=== PATIENT | female | born 1990 | race Caucasian/White ===

== ENCOUNTER → 2019-06-26 11:11 | Outpatient (BNVA) | payer OTHER, SELFPAY | PROVIDERS: Family Provider Family Medicine; PCP Nurse Practitioner Family; Visit Provider Nurse Practitioner | DX: M25.511 Pain in right shoulder (principal) | CPT/HCPCS: 73030 ==

== ENCOUNTER → 2020-07-22 07:55 | Outpatient (BNVA) | payer OTHER, SELFPAY | PROVIDERS: Family Provider Family Medicine; PCP Nurse Practitioner Family; Visit Provider Nurse Practitioner Family | DX: L73.9 Follicular disorder, unspecified (principal) | CPT/HCPCS: 87070; 87077; 87184 ==

== ENCOUNTER → 2021-02-08 16:07 | Outpatient (BNVA) | payer OTHER, SELFPAY | PROVIDERS: Family Provider Family Medicine; PCP Nurse Practitioner Family; Visit Provider Obstetrics & Gynecology | DX: N92.6 Irregular menstruation, unspecified (principal) | CPT/HCPCS: 88305 ==

== ENCOUNTER → 2021-02-23 13:10 | Outpatient (BNVA) | payer OTHER, SELFPAY | PROVIDERS: Family Provider Family Medicine; PCP Nurse Practitioner Family; Visit Provider Obstetrics & Gynecology | DX: N93.9 Abnormal uterine and vaginal bleeding, unspecified (principal); E66.9 Obesity, unspecified | CPT/HCPCS: 76830 ==

== ENCOUNTER → 2021-03-25 08:59 | Outpatient (BNVA) | payer OTHER, SELFPAY | PROVIDERS: Family Provider Family Medicine; PCP Nurse Practitioner Family; Visit Provider Obstetrics & Gynecology | DX: Z20.822 Contact with and (suspected) exposure to COVID-19 (principal); D21.9 Benign neoplasm of connective and other soft tissue, unspecified; N93.9 Abnormal uterine and vaginal bleeding, unspecified; R10.2 Pelvic and perineal pain; R32 Unspecified urinary incontinence | CPT/HCPCS: 87635 ==

== ENCOUNTER 2021-03-30 18:36 | Observation (INO) | payer OTHER, SELFPAY ==
[2021-03-29 14:13] VITALS: BMI 42.5
[2021-03-30] VITALS (18 sets, daily range): BP systolic 108–151; BP diastolic 78–104; PULSE 79–898; RESP 12–22; TEMP 36.1–36.4; O2SAT 94–100; BMI 44.1
--- NOTE | 2021-03-30 08:30 | ANES.PREANE2 ---
Pre-Anesthetic Assessment Pre-Anesthetic Assessment: Height/Weight: Height 1.6 m Weight 108.862 kg Temp Pulse Resp BP Pulse Ox 97.5 F L 79 16 151/104 100 03/30/21 08:25 03/30/21 08:25 03/30/21 08:25 03/30/21 08:25 03/30/21 08:25 Preop Diagnosis: Adenomyosis, leiomyoma, AUB Proposed Procedure: Operation Date: 03/30/21 09:35 Proposed Procedures p Laparoscopic Assist Vaginal Hysterectomy 14022 02284 D21.9 N93.9 R32(Not Applicable) - Susan Chavez MD s Laparoscopic Salpingectomy(Bilateral) - Susan Chavez MD s Mid Urethral Sling(Not Applicable) - Susan Chavez MD Familial anesthetic complications: none Was Beta Javier taken within 24 hours: N/A Was Clonidine taken within 24 hours: N/A Last intake: Intake Last Liquid Date 03/29/21 Last Liquid Time 21:00 Last Solid Date 03/29/21 Last Solid Time 21:00 Social: Social History: No alcohol and No tobacco Exam: Pre-Anes Outpt Exam: alert, oriented x 3, clear to auscultation bilaterally and regular rate & rhythm Airway: Cervical ROM: WNL MP: 1 Dentition: Other (implants) Metabolic: Metabolic: Morbid obesity Comments: PCOS Anesthetic Plan: ASA status: 3 Anesthesia: General Risk of > 500 ml blood loss (7ml/kg in children): No PFSH Anesthesia PFSH: Medical History History of PCOS History of pre-eclampsia Traumatic partial tear of biceps tendon Surgical History History of bladder repair surgery sling, 10/2020 Social History Smoking and tobacco status: never smoked Alcohol intake: current Alcohol intake frequency: holidays/special occasions only Female Reproductive History: Date of last menstrual period: 03/21/21 Data Anesthesia Cardiac Studies: No Data to Display
[2021-03-30] MEDS: sodium chloride 0.9% 1,000 ML 30 ML IV (08:40)
[2021-03-30 08:46] LABS: Glucose Point of Care 88 mg/dL (70-110)
--- NOTE | 2021-03-30 12:47 | W.PM.OPSUD ---
Surgery/Procedure H&P Update DATE OF PROCEDURE: March 30, 2021 DATE H&P PERFORMED: 03/25/21 H&P UPDATE INFORMATION: I have reviewed H&P completed within last 30 days, I have examined patient prior to procedure and No changes to prior documentation PREOP DIAGNOSIS: Adenomyosis, leiomyoma, AUB PLANNED PROCEDURE: Operation Date: 03/30/21 09:35 Proposed Procedures p Laparoscopic Assist Vaginal Hysterectomy 72421 36657 D21.9 N93.9 R32(Not Applicable) - Susan Chavez MD s Laparoscopic Salpingectomy(Bilateral) - Susan Chavez MD s Mid Urethral Sling(Not Applicable) - Susan Chavez MD
[2021-03-30 13:27] LABS: OR HCG Qualitative Urine Negative (Negative)
[2021-03-30 13:57] LABS: Basophils % 0.3 %; Eosinophils # 0.1 10^3/uL (0.0-0.8); Eosinophils % 1.2 %; Hematocrit 42.9 % (37.0-47.0); Lymphocytes # 1.8 10^3/uL (0.8-4.8); Lymphocytes % 18.3 %; Mean Corpuscular Hemoglobin 30.6 pg (28.0-34.0); Mean Corpuscular Volume 87.6 fl (81-99); Mean Platelet Volume 10.5 fL (7.4-10.4); Monocytes # 0.5 10^3/uL (0.2-0.9); Monocytes % 4.9 %; Neutrophils # 7.51 10^3/uL (1.8-7.7); Nucleated Red Blood Cells % 0 %; Platelet Count 320 10^3/cmm (130-400); Red Cell Distribution Width 11.8 % (12.1-15.1)
[2021-03-30] MEDS: vasopressin 20 unit/mL INJ (14:33)
[2021-03-30] MEDS: acetaminophen 1,000 MG/100 ML PIGGYBACK 400 MG IV (15:05)
[2021-03-30 15:18] LABS: Anion Gap 17.4 (5-19); Blood Urea Nitrogen 9 mg/dL (6-20); Calcium 8.6 mg/dL (8.5-10.5); Carbon Dioxide 22 mmol/L (22-29); Chloride 102 mmol/L (98-107); Glomerular Filtration Rate 143.9 mL/min (90-130); Glucose 79 mg/dL (65-115); Osmolality Calculated 282 mOsm/kg (285-295); Potassium 4.4 mmol/L (3.5-5.1); Sodium 137 mmol/L (136-145)
[2021-03-30] MEDS: ketorolac 30 mg/mL INJ IVP ×2 (15:18→20:30)
--- NOTE | 2021-03-30 16:18 | PC.NURSE ---
1618 spoke with patient's mother and gave her an update.
--- NOTE | 2021-03-30 17:22 | PM.OP ---
Operative Report Date of procedure: March 30, 2021 Pre-op Diagnosis: Adenomyosis, leiomyoma, AUB Post-op diagnosis: same Post-op Findings: same with endometiosis Procedure Done: laparoscopic assisted vaginal hysterectomy, bilateral salpingectomy Specimens removed/disposition: uterus, bilateral fallopian tubes to pathology Surgeon: Susan Chavez Anesthesia: General Estimated blood loss (mL): 400 IV fluids (mL): 1,600 Urine output (mL): 250 Complications: none Condition: stable Disposition: floor Procedure: The patient was taken to the operating room where general anesthesia was administered and found to be adequate. She was prepped and draped in the normal sterile fashion in the dorsal lithotomy position in [facility]. A Christensen catheter was placed. A weighted speculum was placed into the vagina and the anterior lip of the cervix was grasped with a single tooth tenaculum. The Zumi uterine manipulator was placed. The weighted speculum was removed. The gloves were changed and attention was turned to the abdomen. A 5 mm infraumbilical incision was made. Using a 5 mm port with the camera, the port was placed into the abdomen. The abdomen was insufflated. Two low, lateral 5 mm ports were placed on the left and right under direct visualization from the camera. The right tube was grasped and elevated. Using the laparoscopic cautery, the mesosalpinx was divided between the ovary and tube. The tube was removed. This was performed the same way on the left. The uteroovarian ligaments as well as the round ligaments were ligated. Attention was then turned to the vaginal portion of the procedure. The weighted speculum was placed into the vagina. The zumi manipulator was removed. The single tooth tenaculum was removed and replaced with the renu's tenaculum. 10 mL of dilute Pitressin was injected at the vesicovaginal junction. A circumferential incision was made at the vesicovaginal junction and the vaginal mucosa reflected cephalad. The posterior peritoneum was entered sharply with the Metzenbaum scissors and the long weighted speculum replaced. Using the Luciano clamps the uterosacral ligaments were clamped cut and suture-ligated. The anterior peritoneum was entered sharply with the metzenbaum scissors. Then sequentially the uterine arteries and cardinal ligaments were clamped cut and suture-ligated. A single-tooth tenaculum was used to deliver the uterus. The remaining segement of the utero-ovarian ligaments were clamped cut and suture-ligated bilaterally and the specimen was removed. There was good hemostasis with only mild bleeding from the cuff. The peritoneum was closed with a pursestring using 2-0 Vicryl. The vaginal cuff was closed with 0 Vicryl in a running locked pattern incorporating the uterosacral ligaments into the lateral aspects of the vaginal cuff. The Christensen catheter was removed and the cystoscope advanced into the bladder. The patient was given pyridium and bilateral spill was noted. There were no injuries or deficits noted in the bladder. The cystoscope was removed and the Christensen was replaced. Vaginal packing was placed for good hemostasis. The patient tolerated the procedure well. Sponge lap and needle counts were correct x3. She was taken to the recovery room in stable condition. Associated Problem List Diagnoses (1) Adenomyosis: (2) Leiomyoma: (3) Abnormal uterine bleeding (AUB):
[2021-03-30] MEDS: fentaNYL 50 mcg/mL INJ 2mL IVP ×2 (17:25→17:35)
[2021-03-30] MEDS: gabapentin 300 mg Capsule PO (18:04)
[2021-03-30] MEDS: morphine 4 mg/mL SDV 1 mL 2 MG IVP ×2 (18:07→18:12)
[2021-03-30] MEDS: HYDROmorphone 1 mg/mL INJ 1 mL 0.5 MG IVP ×2 (18:17→18:27)
[2021-03-30] MEDS: CELEcoxib 200 mg Capsule 400 MG PO (18:26)
[2021-03-30] MEDS: phenazopyridine 100 mg Tablet 200 MG PO (19:10)
[2021-03-30] MEDS: metformin 500 mg Tablet PO (20:29)
[2021-03-30] MEDS: lactated ringers 1,000 ML 125 ML IV (20:29)
[2021-03-30] MEDS: docusate sodium 100 mg Capsule PO (20:29)
[2021-03-30] MEDS: HYDROcodone-acetaminophen 5-325 mg Tablet PO (22:17)
--- NOTE | 2021-03-30 23:31 | CTR_ITS ---
PROCEDURE INFORMATION: Exam: CT Abdomen And Pelvis With Contrast Exam date and time: 03/30/2021 11:31 PM Age: 30 years old Clinical indication: Prior surgery; Surgery date: Post-operative (0-2 days); Surgery type: Hysterectomy on 03/30/2021. History of bladder sling. ; Patient HX: Persistent post op bleeding and blood in ocasio catheter S/P hysterectomy on 03/30/2021. ; Additional info: Blood in ocasio post op TECHNIQUE: Imaging protocol: Computed tomography of the abdomen and pelvis with contrast. Radiation optimization: All CT scans at this facility use at least one of these dose optimization techniques: automated exposure control; mA and/or kV adjustment per patient size (includes targeted exams where dose is matched to clinical indication); or iterative reconstruction. Contrast material: OMNI 350; Contrast volume: 95 ml; Contrast route: INTRAVENOUS (IV); COMPARISON: ES surgery / GI images 03/30/2021 1:02 PM RADIATION DOSE METRICS: Total DLP (mGy-cm): 2095.78 FINDINGS: Liver: Hepatic steatosis. Gallbladder and bile ducts: Normal. No calcified stones. No ductal dilation. Pancreas: Normal. No ductal dilation. Spleen: Normal. No splenomegaly. Adrenal glands: Normal. No mass. Kidneys and ureters: Left kidney interpolar region possible nonobstructive renal calyceal stone seen on the coronal images. Stomach and bowel: Unremarkable. No obstruction. No mucosal thickening. Appendix: No evidence of appendicitis. Intraperitoneal space: Free air seen throughout the abdomen is likely postsurgical in nature. Vasculature: Unremarkable. No abdominal aortic aneurysm. Lymph nodes: Unremarkable. No enlarged lymph nodes. Urinary bladder: Ocasio catheter in the urinary bladder. Reproductive: In the deep pelvis posterior to the urinary bladder there is an 11 mm somewhat curvilinear hyperdense area suggestive of some contrast extravasation with surrounding hyperdense material reflective of blood products concerning for active bleeding from a vessel in this region, which appears to be extrinsic to the urinary bladder . Uterus appears absent. Bones/joints: Unremarkable. No acute fracture. Soft tissues: Subcutaneous emphysema over the abdominal wall is likely postsurgical. CT/CT abdomen pelvis w con* [id number] IMPRESSION: 1. In the deep pelvis posterior to the urinary bladder there is an 11 mm somewhat curvilinear hyperdense area suggestive of some contrast extravasation with surrounding hyperdense material reflective of blood products concerning for active bleeding from a vessel in this region, which appears to be extrinsic to the urinary bladder. Uterus appears absent. 2. Ocasio catheter in the urinary bladder. 3. Free air seen throughout the abdomen is likely postsurgical in nature. 4. Hepatic steatosis. 5. Subcutaneous emphysema over the abdominal wall is likely postsurgical. 6. Left kidney interpolar region possible nonobstructive renal calyceal stone seen on the coronal images. Radiation Dose CTDIVOL = (mGy): DLP = 2095.78 (mGy-cm)
[2021-03-30] MEDS: iohexol 350 mg/mL 100 mL Btl IV (23:47)
[2021-03-31] VITALS (10 sets, daily range): BP systolic 119–144; BP diastolic 74–92; PULSE 71–108; RESP 16–18; TEMP 36.6–36.9; O2SAT 91–97
[2021-03-31 00:16] LABS: Basophils % 0.1 %; Hemoglobin 10.9 g/dL (11.5-15.3); Lymphocytes # 0.6 10^3/uL (0.8-4.8); Lymphocytes % 3.6 %; Mean Corpuscular HGB Conc 34.1 g/dL (30.0-36.0); Mean Corpuscular Volume 90.9 fl (81-99); Mean Platelet Volume 9.9 fL (7.4-10.4); Monocytes # 0.2 10^3/uL (0.2-0.9); Monocytes % 1.3 %; Neutrophils # 15.48 10^3/uL (1.8-7.7); Neutrophils % 94.5 %; Nucleated Red Blood Cells % 0 %; Platelet Count 358 10^3/cmm (130-400); Red Blood Count 3.52 10^6/uL (4.1-5.3); White Blood Count 16.4 10^3/uL (4.0-10.0)
[2021-03-31] MEDS: HYDROmorphone 1 mg/mL INJ 1 mL 1.5 MG IVP ×3 (01:13→07:38)
[2021-03-31] MEDS: ketorolac 30 mg/mL INJ IVP ×2 (03:36→10:42)
--- NOTE | 2021-03-31 03:43 | PC.NURSE ---
While doing my rounds at 2300 and checking on the patient this nurse noted that there was blood in the patient's ocasio bag and tube, the patient was c/o of a lot of pain and not getting any control, this nurse went and got the charge nurse to assess the patient with me, we both agreed that the provider should be contacted, we got a hold of the doctor at 2325 and she gave N/O for STAT CBC and CT abdomen/pelvis w/ contrast, this nurse at approx 0030 called the physician again with the CT and CBC results, at that time the physician stated she was coming to see the patient, the physician arrived around 0100, after assessing the patient she asked for me to give her some dilaudid and the physician did a small procedure at the bedside, the patient has been resting more comfortable, vitals signs have remained stable throughout.
[2021-03-31] MEDS: lactated ringers 1,000 ML 125 ML IV ×2 (04:15→10:47)
[2021-03-31 06:12] LABS: Hematocrit 31.3 % (37.0-47.0); Hemoglobin 10.6 g/dL (11.5-15.3); Mean Corpuscular HGB Conc 33.9 g/dL (30.0-36.0); Mean Corpuscular Hemoglobin 30.7 pg (28.0-34.0); Mean Corpuscular Volume 90.7 fl (81-99); Mean Platelet Volume 10.7 fL (7.4-10.4); Platelet Count 376 10^3/cmm (130-400); Red Blood Count 3.45 10^6/uL (4.1-5.3); Red Cell Distribution Width 11.9 % (12.1-15.1); White Blood Count 18.2 10^3/uL (4.0-10.0)
[2021-03-31] MEDS: docusate sodium 100 mg Capsule PO ×2 (07:44→17:43)
--- NOTE | 2021-03-31 09:21 | P.PN_ITS ---
Vitals/I&O/Wt Last Vital Signs Temp 97.8 F 03/31/21 08:17 Pulse 98 03/31/21 08:17 Resp 17 03/31/21 08:17 BP 138/92 03/31/21 08:17 Pulse Ox 93 03/31/21 08:17 03/30/21 03/31/21 03/31/21 22:59 06:59 14:59 Intake Total 1290 / 1350 1150.833 / 2500.833 60 / 60 Output Total 900 / 900 700 / 1600 Balance 390 / 450 450.833 / 900.833 60 / 60 Weight last 48 hrs Weight 249 lb 3.2 oz Weight 240 lb Physical Exam Narrative: EXAM NARRATIVE: I was called to see the patient overnight. She started to have blood in her urine and there was an area of bleeding on her celeste pad. A CT scan was performed as well as a CBC. By the time that I arrived at the hospital, her urine had cleared of blood. The packing was removed. It was saturated and had small clots attached. The packing was replaced. The CT scan showed a possible small area of active bleeding, inferior to the bladder. The CBC showed a drop in hemoglobin from 15 to 10.9. The patient's vitals were stable. She is having low abdominal pain. She has not been up, yet. The patient received dilaudid for pain control. This controlled her pain well and she got some rest over night. Her hemoglobin is stable. the packing appears to be normal. Urine remains clear (pyridium). Her pain is better controlled today. I encouraged her to get up and walk to try to pass some gas. I gave her the option to stay another day for pain control or go home this afternoon. I will come back and evaluate later today and remove her packing. Const: COMMON NORMALS: patient oriented x3, healthy appearing, alert and well nourished GENERAL APPEARANCE: cooperative, comfortable, well kempt and well developed ORIENTATION/CONSCIOUSNESS: Yes awake, Yes oriented to person, Yes oriented to place and Yes oriented to time Resp: COMMON NORMALS: normal respiratory effort EFFORT & INSPECTION: Yes able to speak in complete sentences GI: COMMON NORMALS: Soft to palpation and non-tender PALPATION: Yes Soft to palpation Extremity: COMMON NORMALS: no calf tenderness Neuro: COMMON NORMALS: patient oriented x3 SENSORIUM/ORIENTATION: Yes alert, Yes oriented to person, Yes oriented to place and Yes oriented to time Psych: APPEARANCE: Yes well kempt Urinary Catheter Management^: Christensen: Cath Placed During This Visit: yes Reason for Continuing Indwelling Catheter: Perioperative Use in Selected Surgeries Urinary Catheter Date of Insertion: 03/30/21 Urinary Catheter Time of Insertion: 14:29 Data : 03/31/21 04:44 03/30/21 13:40 Attestations Medical Necessity Statement*: The patient may go home today. Coding Level of Care Code Acute Junior Copywriter for Rochelle Sanchez
--- NOTE | 2021-03-31 10:24 | PC.CHAP ---
Pastoral Care Encounter/Spiritual Assessment Type of Contact [] Declined soil biology teacher visit [] Patient/Family/Request visit [] Outpatient visit [] Follow-up visit [] Physician referral [] Code/Alert [x] Routine visit [] Staff referral [] Actively dying [] Patient sleeping [] Family support [] [] Out of room [] Palliative care [] [] Receiving care in room [] Pre-surgical visit [] Trauma [] Long length of stay [] ICU visit [] Other: Relational/Emotional Strength [x] Patient feels connected with others/family/visitors/staff [] Distress [] Loneliness/isolation [] Abandonment Spirituality of Patient [x] Person of Hilda [] Attends Adventism of their Hilda [x] Believes in Prayer [] Reads Bible or Faith materials [] There are Spiritual issues to be addressed Technical Sales Advisor Interventions [x] Prayer [x] Active listening [x] Non-anxious presence [x Spiritual/emotional support [] Crisis/trauma care [] Spiritual counseling [] Bereavement support [] Provided bereavement packet [] Provided Bible/devotional materials [] Provided toy/stuffed animal, coloring book to patient or family member [] Provided Communion [] Anointing/[place] [] Salvation [x] Completed spiritual assessment [] Other: Impact on Illness or Injury [] Angry [] Fearful [] Anxious [] Often cries [] Exhaustion [] Unable to work [] Unable to attend shinto [] Unable to walk/stand [] Unable to read [] Unable to drive [] Unable to eat/drink [] Unable to sleep [] Unable to be with family [] Patient intubated [] Other: Summary patient very sore Time spent with patient 10 min
[2021-03-31] MEDS: HYDROcodone-acetaminophen 5-325 mg Tablet PO ×2 (10:46→17:42)
[2021-03-31] MEDS: ondansetron 2 mg/ML SDV 2 mL 4 MG IVP (12:15)
--- NOTE | 2021-03-31 16:35 | PM.DCS ---
Discharge Providers Date of Admission: 03/30/21 18:36 Date of Discharge: March 31, 2021 Attending Provider at Admission: Susan Chavez MD Attending Provider at Discharge: Susan Chavez MD Primary Care Provider: Jodie Garrett Diagnoses at Discharge Discharge Diagnosis (1) Adenomyosis: Status: Acute (2) Leiomyoma: Status: Acute (3) Abnormal uterine bleeding (AUB): Status: Acute Reason for Visit Reason for Visit: Leiomyoma, Abnormal uterine bleeding, Pelvic pain Hospital Course Hospital Course The patient was admitted for surgery. She was doing well postoperatively, when I was called and informed that the patient suddenly had some blood in her catheter and appeared to be having some vaginal bleeding. A CT was performed and it showed a possible active bleeding area of 11mm. Her hemoglobin had dropped to 10.9, but this amount can be explained by surgery and IV fluids. Her vital signs remained stable. I removed and replaced her packing. There was some clot on the packing. The ocasio had no blood in it and she had no further bleeding into the catheter. I replaced the packing and ordered dilaudid for pain management. hemogram in the AM showed the hemoglobin to be stable. She did better after this. She ambulated and was able to pass flatus. Her pain at discharge was 3/10. I removed her packing and it appeared normal. Much of it had no blood at all. I suspect that she had a small hematoma from the vascular cuff. At time of discharge, her pain was well controlled. She was tolerating a regular diet. She is ambulating. She is having scant vaginal bleeding. Vitals are stable as well as hemoglobin. She was ready for discharge. She has been advised to take it easy for a couple of days, but to make sure that she is ambulating frequently. Physical Exam Urinary Catheter Management^: Ocasio: Cath Placed During This Visit: yes Reason for Continuing Indwelling Catheter: Perioperative Use in Selected Surgeries Urinary Catheter Date of Insertion: 03/30/21 Urinary Catheter Time of Insertion: 14:29 Discharge Data Data Completed and Pending: Completed Studies During Hospitalization Category Date Time Status CT abdomen pelvis w con* [id number] Stat Cat Scan 03/30/21 23:31 Completed Pending at discharge Category Date Time Status ES surgery / GI i mages Routine Exams 03/30/21 13:02 Taken Urine Culture [facility] 03/30/21 14:25 Received Pathology: Surgic al [PTH] Routine Pth 03/30/21 17:20 Received Labs from last 24 hours 03/31/21 03/31/21 04:44 00:02 WBC 18.2 H 16.4 H RBC 3.45 L 3.52 L Hgb 10.6 L 10.9 L Hct 31.3 L 32.0 L MCV 90.7 90.9 MCH 30.7 31.0 MCHC 33.9 34.1 RDW 11.9 L 12.0 L Plt Count 376 358 MPV 10.7 H 9.9 Neut % (Auto) 94.5 Lymph % (Auto) 3.6 [place] % (Auto) 1.3 Eos % (Auto) 0.0 Baso % (Auto) 0.1 Neut # (Auto) 15.48 H Lymph # (Auto) 0.6 L [place] # (Auto) 0.2 Eos # (Auto) 0.0 Baso # (Auto) 0.0 Nucleated RBC % (a uto) 0 Nucleated RBCs # 0.0 Vitals: Last Vital Signs Temp 97.9 F 03/31/21 15:58 Pulse 103 H 03/31/21 15:58 Resp 18 03/31/21 15:58 BP 144/83 03/31/21 15:58 Pulse Ox 91 03/31/21 15:58 Discharge Plan Discharge Patient Disposition: Home Condition: Stable Prescriptions: New ibuprofen 800 mg Tablet 800 mg PO Q8H Qty: 30 RF: 0 docusate sodium 100 mg capsule 100 mg PO BID Qty: 60 RF: 0 oxycodone-acetaminophen 7.5-325 mg tablet 1 tab PO Q4H Qty: 30 RF: 0 Continued metformin 500 mg tablet 500 mg PO BID RF: 0 Discharge Orders: Discharge Order (Routine); Ordered 03/31/21 Ordered By: Susan Chavez Patient Instructions: Ibuprofen (By mouth), Oxycodone/Acetaminophen (By mouth), Laxative, Stool Softeners (By mouth), Vaginal Hysterectomy (GEN), Opioid Safety Discharge Attestations Time Spent in Discharge Care*: greater than 30 min Quality Metrics Clinical Quality Measures During this hospital stay, did patient experience: None Coding Level of Care Code Acute Chg FW DC note Diagnoses Adenomyosis N80.0 Leiomyoma D21.9 Abnormal uterine bleeding (AUB) N93.9
[2021-03-31] MEDS: ibuprofen 800 mg tablet PO (17:42)
--- NOTE | 2021-03-31 18:24 | PC.NURSE ---
patient verbalized understanding of discharge instructions, home medications, and follow ups. ocasio was removed and patient voided prior to d/c. pt was wheeled to main entrance by Jacqui MENDES.
== END 2021-03-31 18:39 | disposition home or self-care (01) ==
LOC: MEDSURG 03-31 08:31
PROVIDERS: Admitting Provider Obstetrics & Gynecology; PCP Nurse Practitioner Family; Visit Provider Obstetrics & Gynecology
PROC: 0UT9FZZ Resection of Uterus, Via Natural or Artificial Opening With Percutaneous Endoscopic Assistance (ICD-10-PCS; CPT 58552; principal; 2021-03-30 09:25)
PROC: (CPT 58661; 2021-03-30 09:25)
PROC: (CPT 57288; 2021-03-30 09:25)
DX: D21.9 Benign neoplasm of connective and other soft tissue, unspecified (principal); N80.0 Endometriosis of uterus; N93.9 Abnormal uterine and vaginal bleeding, unspecified; E28.2 Polycystic ovarian syndrome; R32 Unspecified urinary incontinence; R10.2 Pelvic and perineal pain; E66.01 Morbid (severe) obesity due to excess calories; Z68.41 Body mass index [BMI] 40.0-44.9, adult
CPT/HCPCS: 58552; 36415; 36416; 74177; 80048; 82962; 84703; 85025; 85027; 86850; 86900; 87077; 87086; 87186; 88307; 96365; G0378; J0690; J1100; J1170; J1885; J2270; J2405; J2704; J2710; J3010; J3490; J7030; Q9967; Q9968

== ENCOUNTER 2021-04-24 07:46 | Emergency (ER) | payer OTHER, SELFPAY ==
--- NOTE | 2021-04-24 07:56 | CTR_ITS ---
PROCEDURE INFORMATION: Exam: CT Abdomen And Pelvis With Contrast Exam date and time: 04/24/2021 7:56 AM Age: 30 years old Clinical indication: Abdominal pain; Prior surgery; Surgery date: <1 month; Surgery type: Hysto; Additional info: Abd pain unable to urinate TECHNIQUE: Imaging protocol: Computed tomography of the abdomen and pelvis with contrast. Total images: 252 Radiation optimization: All CT scans at this facility use at least one of these dose optimization techniques: automated exposure control; mA and/or kV adjustment per patient size (includes targeted exams where dose is matched to clinical indication); or iterative reconstruction. Contrast material: OMNI 300; Contrast volume: 95 ml; Contrast route: INTRAVENOUS (IV); COMPARISON: CT abdomen pelvis w con* [id number] 03/30/2021 11:44 PM RADIATION DOSE METRICS: Total DLP (mGy-cm): 1769.03 FINDINGS: Liver: Normal. No mass. Gallbladder and bile ducts: Normal. No calcified stones. No ductal dilation. Pancreas: Normal. No ductal dilation. Spleen: Normal. No splenomegaly. Adrenal glands: Normal. No mass. Kidneys and ureters: Nonobstructive left sided kidney stone measures 3 mm. Stomach and bowel: Unremarkable. No obstruction. No mucosal thickening. Appendix: No evidence of appendicitis. Intraperitoneal space: Inflammatory changes noted within the pelvis with fatty stranding and small amount of free fluid. Other than resolution of free air within the abdomen and within the abdominal wall. Pelvic inflammatory changes appear similar. Vasculature: Unremarkable. No abdominal aortic aneurysm. Lymph nodes: Unremarkable. No enlarged lymph nodes. Urinary bladder: A Christensen catheter with mildly distended urinary bladder. Reproductive: Prior hysterectomy noted. Bones/joints: Unremarkable. No acute fracture. Soft tissues: Fat-containing umbilical hernia is present without inflammation. CT/CT abdomen pelvis w con* [id number] IMPRESSION: Inflammatory changes noted within the pelvis with fatty stranding and small amount of free fluid. Other than resolution of free air within the abdomen and within the abdominal wall. Pelvic inflammatory changes appear similar.
[2021-04-24 08:04] VITALS: BP 141/70; PULSE 78; RESP 24; TEMP 36.7; O2SAT 67; BMI 42.5
--- NOTE | 2021-04-24 08:10 | PC.NURSE ---
Pt is Not an Elopement Risk.
[2021-04-24 08:18] LABS: Add Urine Microscopic? NO; Charge for UA Resulting for Rev
[2021-04-24 08:20] LABS: Bilirubin Urine Neg (Negative); Blood Urine Neg (Negative); Glucose Urine UA Norm (Normal); Ketones Urine Negative (Negative); Leukocyte Esterase Urine Negative (Negative); Nitrate Urine Negative (Negative); Protein Urine Neg (Negative); Specific Gravity, Urine 1.005 (1.005-1.030); Urine Appearance Clear (CLEAR); Urine Color Yellow (Yellow); Urobilinogen Urine Norm (Negative); pH Urine 5 (5-7)
--- NOTE | 2021-04-24 08:55 | W.ED.FEMALGU ---
HPI - Female Genitourinary General: Chief complaint: Urogenital-Female Stated complaint: lower abd pain; unable to urinate Time Seen by Provider: 04/24/21 07:50 History of Present Illness: HPI Narrative: 30-year-old female presents emergency room complaining lower abdominal pain and severe flank pain she feels like she has bladder spasms. She had a lap assisted vaginal hysterectomy about [address] Chavez. She was last able to void about 10:00 last night states that she has had a little difficulty with voiding ever since the surgery but overnight it became markedly worse. She denies any fever sweats or chills. She not had any shortness of breath cough myalgias. She denies any medic easy melena hematemesis coffee-ground emesis. She was having some mild dysuria prior to developing the flank pain overnight. She is unsure if she had any hematuria because she continued to have a little bit of scant vaginal bleeding since her hysterectomy it has been decreasing with time however. MD elicited complaint: vaginal bleeding, difficulty urinating and other (Urinary retention) Onset (ago): hour(s) Location of symptoms: suprapubic Severity: severe Associated symptoms: Reports abdominal pain; Deny nausea Date of Last Menstrual Period: 03/21/21 Review of Systems Const: Denies: fever(s), chills, body aches, change in appetite, fatigue or malaise ENMT: Denies: throat pain, ear or mastoid pain, nasal discharge or nasal congestion Card: Denies: chest pain, edema, dyspnea on exertion or orthopnea Resp: Denies: dyspnea, productive cough or non-productive cough GI: Reports: abdominal pain; Denies: nausea, vomiting, hematemesis, coffee ground emesis, diarrhea, constipation, bloating, hematochezia or melena : Reports: flank pain and difficulty voiding; Denies: dysuria, urinary frequency or urinary urgency Skin/Breast: Denies: rash or pruritus PFSH ED PFSH: Medical History History of PCOS History of pre-eclampsia Traumatic partial tear of biceps tendon Surgical History History of bladder repair surgery sling, 10/2020 Social History Smoking and tobacco status: never smoked Alcohol intake: current Alcohol intake frequency: holidays/special occasions only Female Reproductive History: Date of last menstrual period: 03/21/21 Physical Exam Const: COMMON NORMALS: no acute distress GENERAL APPEARANCE: cooperative and comfortable ORIENTATION/CONSCIOUSNESS: Yes awake, Yes oriented to person, Yes oriented to place and Yes oriented to time HENMT: COMMON NORMALS: normocephalic, atraumatic, hearing grossly normal bilaterally, external ears normal, EAC's normal, TM's normal bilaterally, Normal nasal mucous membranes and turbinates present, moist oral mucous membranes and oropharynx normal HEAD & SCALP: normocephalic and atraumatic NOSE: Normal nasal mucous membranes and turbinates present EXTERNAL EAR: Yes external ears normal EXTERNAL AUDITORY CANAL: EAC's normal TYMPANIC MEMBRANE: TM's normal bilaterally Neck/C-Spine: COMMON NORMALS: no JVD Resp: COMMON NORMALS: normal respiratory effort, No retractions, No use of accessory muscles and clear to auscultation bilaterally AUSCULTATION: clear to auscultation bilaterally Cardio: COMMON NORMALS: no JVD, regular rate, regular rhythm and No murmurs present (Cardio) RATE: regular rate RHYTHM: regular rhythm GI: COMMON NORMALS: No hepatosplenomegaly present AUSCULTATION: Yes normoactive bowel sounds PALPATION: Yes Tenderness to palpation present (GI) (Diffuse tenderness with bladder palpable to the level of the umbilicus.), No Guarding due to palpation present (GI) and Yes No hepatosplenomegaly present Extremity: COMMON NORMALS: normal to inspection, capillary refill normal, no clubbing, cyanosis or edema, no calf tenderness and no pedal edema Neuro: SENSORIUM/ORIENTATION: Yes oriented to person, Yes oriented to place and Yes oriented to time Skin: COMMON NORMALS: no rashes or lesions noted GENERAL SKIN EXAM: no rashes or lesions noted Course Vital Signs: Vital signs: Vital Signs Temperature 98.1 F 04/24/21 08:04 Pulse Rate 76 04/24/21 12:15 Respiratory Rate 15 04/24/21 12:15 Blood Pressure 132/74 04/24/21 12:15 Pulse Oximetry 100 04/24/21 12:15 MDM - Female MDM Narrative: Medical decision making narrative: on arrival bladder palpable to ayana level of the umbilicus. Immediate releif after placement of ocasio, approximately 15 to 1600 mL out initially. Later when I went to discuss all of the results with the patient the Ocasio bag was completely full was drained and continued to drain urine after this.. CT reviewed and discussed with [facility] and with on-call gynocolgy. THere is a fluid collection in the left pelvic area regio that almost appeared to be a fluid filled fallopian tube. Gynecology reccommends starting clindamycin. D/C patient with ocasio leg bag. Pt directed to have follow up with gynecology in 2 days return to the ER if has any further problem. Dedicated Driver told her there was a likelihood that she did have a vaginal cuff cellulitis. Reviewed the chart from the inpatient time and surgery immediately postop she had some bleeding and had a CT discharging surgeon thought she had a vaginal cuff hematoma. Gynecology on-call thought it is possible a fluid-filled structure never seen on the CT could be a hematoma as well that has been drained slightly into the pelvis. Irregardless at this point patient is stable she feels much better having had her bladder drained. I still am unsure exactly what caused her to retain urine this far out from original procedure. If she has any change or worsening problems she should return immediately. Lab Data: Labs: Lab Results 04/24/21 04/24/21 04/24/21 08:05 08:48 08:48 WBC 20.8 10^3/uL H 10 ^3/uL (4.0-10.0) RBC 4.20 10^6/uL 10^6 /uL (4.1-5.3) Hgb 12.0 g/dL g/dL (11.5-15.3) Hct 35.8 % L % (37.0-47.0) MCV 85.2 fl fl (81-99) MCH 28.6 pg pg (28.0-34.0) MCHC 33.5 g/dL g/dL (30.0-36.0) RDW 13.1 % % (12.1-15.1) Plt Count 545 10^3/cmm H 10 ^3/cmm (130-400) MPV 9.2 fL fL (7.4-10.4) Neut % (Auto) 90.1 % % Lymph % (Auto) 4.9 % % [place] % (Auto) 4.6 % % Eos % (Auto) 0.0 % % Baso % (Auto) 0.1 % % Neut # (Auto) 18.73 10^3/uL H 1 0^3/uL (1.8-7.7) Lymph # (Auto) 1.0 10^3/uL 10^3/ uL (0.8-4.8) [place] # (Auto) 1.0 10^3/uL H 10^ 3/uL (0.2-0.9) Eos # (Auto) 0.0 10^3/uL 10^3/ uL (0.0-0.8) Baso # (Auto) 0.0 10^3/uL 10^3/ uL (0.0-0.1) Nucleated RBC % (a uto) 0 % % Nucleated RBCs # 0.0 /100WBC /100W BC Sodium 137 mmol/L mmol/L (136-145) Potassium 4.0 mmol/L mmol/L (3.5-5.1) Chloride 101 mmol/L mmol/L (98-107) Carbon Dioxide 20 mmol/L L mmol/ L (22-29) Anion Gap 20.0 H (5-19) BUN 9 mg/dL mg/dL (6-20) Creatinine 0.7 mg/dL mg/dL (0.5-0.9) GFR Calculation 97.6 mL/min mL/mi n (90-130) Glucose 89 mg/dL mg/dL (65-115) Calculated Osmolal ity 282 mOsm/kg L mOs m/kg (285-295) Lactic Acid Calcium 8.6 mg/dL mg/dL (8.5-10.5) Total Bilirubin 0.3 mg/dL mg/dL (0.15-1.2) AST 15 U/L U/L (0-32) ALT 14 U/L U/L (0-33) Alkaline Phosphata se 116 IU/L H IU/L (35-105) Total Protein 7.6 g/dL g/dL (6.6-8.7) Albumin 4.3 g/dL g/dL (3.5-5.2) Globulin 3.3 g/dL g/dL (1.3-4.6) Urine Color Yellow (Yellow) Urine Appearance Clear (CLEAR) Urine pH 5 (5-7) Ur Specific Gravit y 1.005 (1.005-1.030) Urine Protein Neg (Negative) Urine Glucose (UA) Norm (Normal) Urine Ketones Negative (Negative) Urine Blood Neg (Negative) Urine Nitrate Negative (Negative) Urine Bilirubin Neg (Negative) Urine Urobilinogen Norm mg/dL mg/dL (Negative) Ur Leukocyte Venessa ase Negative (Negative) 04/24/21 08:48 WBC RBC Hgb Hct MCV MCH MCHC RDW Plt Count MPV Neut % (Auto) Lymph % (Auto) [place] % (Auto) Eos % (Auto) Baso % (Auto) Neut # (Auto) Lymph # (Auto) [place] # (Auto) Eos # (Auto) Baso # (Auto) Nucleated RBC % (a uto) Nucleated RBCs # Sodium Potassium Chloride Carbon Dioxide Anion Gap BUN Creatinine GFR Calculation Glucose Calculated Osmolal ity Lactic Acid 1.0 mmol/L mmol/L (0.5-2.2) Calcium Total Bilirubin AST ALT Alkaline Phosphata se Total Protein Albumin Globulin Urine Color Urine Appearance Urine pH Ur Specific Gravit y Urine Protein Urine Glucose (UA) Urine Ketones Urine Blood Urine Nitrate Urine Bilirubin Urine Urobilinogen Ur Leukocyte Venessa ase Discharge Plan Discharge Patient Disposition: Home Clinical Impression: Acute urinary retention, Vaginal cuff cellulitis Condition: Stable Prescriptions: New clindamycin HCl 300 mg capsule 300 mg PO Q6H 10 Days Qty: 40 RF: 0 hydrocodone-acetaminophen 5-325 mg tablet 1 tab PO Q6H PRN (Reason: pain) Qty: 10 RF: 0 No Action metformin 500 mg tablet 500 mg PO BID RF: 0 metronidazole [Flagyl] 500 mg tablet 500 mg PO BID Qty: 20 RF: 0 oxycodone-acetaminophen 5-325 mg tablet 1 tab PO Q6H PRN (Reason: pain) 7 Days Qty: 20 RF: 0 flavoxate 100 mg tablet 100 mg PO QID Qty: 120 RF: 1 cephalexin 750 mg capsule 750 mg PO BID Qty: 20 RF: 0 docusate sodium 100 mg capsule 100 mg PO BID Qty: 60 RF: 0 Discharge Orders: Discharge ED (Routine); Ordered 04/24/21 Ordered By: Brayden Kern Referrals: Jodie Garrett [Primary Care Provider] - Discharge Diet: Usual diet Discharge Activity: Limit activity as instructed Patient Instructions: Opioid Safety Activity Restrictions/Additional Instructions: Follow-up on Monday morning at the gynecology clinic. Return if you have any further problems. Coding Level of Care Code ED Fitter / Welder for Rochelle Sanchez
[2021-04-24 08:56] LABS: Basophils % 0.1 %; Hematocrit 35.8 % (37.0-47.0); Lymphocytes % 4.9 %; Mean Corpuscular HGB Conc 33.5 g/dL (30.0-36.0); Mean Corpuscular Hemoglobin 28.6 pg (28.0-34.0); Mean Corpuscular Volume 85.2 fl (81-99); Mean Platelet Volume 9.2 fL (7.4-10.4); Monocytes % 4.6 %; Neutrophils # 18.73 10^3/uL (1.8-7.7); Neutrophils % 90.1 %; Nucleated Red Blood Cells % 0 %; Platelet Count 545 10^3/cmm (130-400); Red Cell Distribution Width 13.1 % (12.1-15.1); White Blood Count 20.8 10^3/uL (4.0-10.0)
[2021-04-24 09:15] LABS: Alanine Aminotransferase 14 U/L (0-33); Albumin Level 4.3 g/dL (3.5-5.2); Alkaline Phosphatase 116 IU/L (35-105); Aspartate Amino Transferase 15 U/L (0-32); Blood Urea Nitrogen 9 mg/dL (6-20); Calcium 8.6 mg/dL (8.5-10.5); Carbon Dioxide 20 mmol/L (22-29); Chloride 101 mmol/L (98-107); Globulin 3.3 g/dL (1.3-4.6); Glomerular Filtration Rate 97.6 mL/min (90-130); Glucose 89 mg/dL (65-115); Osmolality Calculated 282 mOsm/kg (285-295); Sodium 137 mmol/L (136-145); Total Bilirubin 0.3 mg/dL (0.15-1.2); Total Protein 7.6 g/dL (6.6-8.7)
[2021-04-24] MEDS: iohexol 300 mg/mL 100 mL Btl IV (09:25)
[2021-04-24] MEDS: ketorolac 30 mg/mL INJ IVP (10:07)
[2021-04-24] MEDS: ondansetron 2 mg/ML SDV 2 mL 4 MG IVP (10:08)
[2021-04-24] MEDS: pantoprazole 40 mg SDV IVP (10:09)
[2021-04-24] MEDS: morphine 4 mg/mL SDV 1 mL IVP (10:09)
[2021-04-24 10:14] VITALS: BP 121/88; PULSE 81; RESP 15; O2SAT 99
[2021-04-24 12:15] VITALS: BP 132/74; PULSE 76; RESP 15; O2SAT 100
== END 2021-04-24 12:17 | disposition home or self-care (01) ==
PROVIDERS: Physician Assistant; Emergency Provider Family Medicine; PCP Nurse Practitioner Family
DX: R33.9 Retention of urine, unspecified (principal); N73.2 Unspecified parametritis and pelvic cellulitis; Z79.84 Long term (current) use of oral hypoglycemic drugs; Z79.891 Long term (current) use of opiate analgesic
CPT/HCPCS: 36415; 51702; 74177; 80053; 81003; 83605; 85025; 87040; 96374; 96375; 99284; C9113; J1885; J2270; J2405; Q9967

== ENCOUNTER → 2021-04-26 11:49 | Outpatient (BNVA) | payer OTHER, SELFPAY | PROVIDERS: PCP Nurse Practitioner Family; Visit Provider Obstetrics & Gynecology | DX: N89.8 Other specified noninflammatory disorders of vagina (principal) | CPT/HCPCS: 87070; 87205; 87481; 87512; 87798; 87799 ==

== ENCOUNTER → 2021-04-29 00:01 | Outpatient (BNVA) | payer OTHER, SELFPAY | PROVIDERS: PCP Nurse Practitioner Family; Visit Provider Obstetrics & Gynecology | DX: Z98.890 Other specified postprocedural states (principal) | CPT/HCPCS: 87506 ==

== ENCOUNTER 2021-05-01 19:57 | Emergency (ER) | payer OTHER, SELFPAY ==
[2021-05-01 20:09] VITALS: PULSE 100; RESP 20; TEMP 36.7; O2SAT 98
--- NOTE | 2021-05-01 20:17 | W.ED.FEMALGU ---
Documented by User: BROOKS Sandoval 05/01/21 21:35 HPI - Female Genitourinary General: Chief complaint: Urogenital-Female Stated complaint: cath an bladder pain Time Seen by Provider: 05/01/21 20:12 History of Present Illness: HPI Narrative: 30-year-old female comes in today with poor urine output from her urinary catheter with increased abdominal pain. Patient had a hysterectomy on the 30 March. Patient on 24 April had an episode of urinary retention in which she was seen in the emergency department and had a Christensen catheter placed with a urine output of 2000 mL. Patient today started having increased pressure and discomfort in the bladder and noted decreased urine output. Patient appears in moderate pain with mild distress. Patient does appear well. Review of the record noted that Dr. Chavez, BEAD BUILDER, had seen the patient after her ER visit on the and had done cultures and noted a normal vaginal exam. Cultures did not grow out any abnormal pathogens. Date of Last Menstrual Period: 03/21/21 Review of Systems General: Reports: 10 or more systems reviewed and unremarkable except in HPI and below : Reports: other (Poor urine output through Christensen catheter and bladder distention) [facility] ED PFSH: Medical History History of PCOS History of pre-eclampsia Traumatic partial tear of biceps tendon Surgical History History of bladder repair surgery sling, 10/2020 Social History Smoking and tobacco status: never smoked Alcohol intake: current Alcohol intake frequency: holidays/special occasions only Female Reproductive History: Date of last menstrual period: 03/21/21 Physical Exam Const: COMMON NORMALS: patient oriented x3 GENERAL APPEARANCE: cooperative HENMT: COMMON NORMALS: normocephalic and Normal external nose present HEAD & SCALP: normal to inspection and normocephalic NOSE: Normal external nose present Eye: GENERAL EYE: appearance normal, both eyes and all related structures Neck/C-Spine: COMMON NORMALS: full ROM Chest: COMMONS NORMALS: normal inspection of the chest Resp: COMMON NORMALS: normal respiratory effort EFFORT & INSPECTION: Yes able to speak in complete sentences Cardio: COMMON NORMALS: regular rate and regular rhythm RATE: regular rate RHYTHM: regular rhythm GI: PALPATION: Yes Tenderness to palpation present (GI) (suprapubic) : COMMON NORMALS: Yes no CVA tenderness BLADDER/KIDNEY EXAM: Yes no CVA tenderness Back/Pelvis: COMMON NORMALS: no CVA tenderness and thoracic and lumbar spine normal to inspection Extremity: COMMON NORMALS: normal to inspection Neuro: COMMON NORMALS: patient oriented x3 and moves all extremities Psych: COMMON NORMALS: mental status grossly normal and cooperative Skin: COMMON NORMALS: no rashes or lesions noted GENERAL SKIN EXAM: no rashes or lesions noted Course Vital Signs: Vital signs: Vital Signs Temperature 98.0 F 05/01/21 20:09 Pulse Rate 100 05/01/21 20:09 Respiratory Rate 20 H 05/01/21 20:09 Pulse Oximetry 98 05/01/21 20:09 MDM - Female MDM Narrative: Medical decision making narrative: 30-year-old female comes in today with some abdominal pressure and poor urine output through Christensen catheter. On exam patient is alert and oriented. Skin is warm and dry. Vital signs are normal. Tenderness is noted in the suprapubic area. Differential diagnosis includes but not limited to urinary tract infection, urinary retention, dysfunctional Christensen catheter. Christensen cath had a total of 250 mL in the leg bag, nursing after flushing of the Christensen catheter had a total of another 800 mL out. Recommended Christensen catheter changed and then another 600 mL was out. Patient reported improvement in pain and discomfort. Recommend patient continue with routine care and follow-up with Dr. Chavez as scheduled on Monday. Return to the ER for high fever or new concerns. Lab Data: Labs: Lab Results 05/01/21 20:30 Urine Color Yellow (Yellow) Urine Appearance Clear (CLEAR) Urine pH 5 (5-7) Ur Specific Gravit y 1.015 (1.005-1.030) Urine Protein Neg (Negative) Urine Glucose (UA) Norm (Normal) Urine Ketones Negative (Negative) Urine Blood 3+ H (Negative) Urine Nitrate Negative (Negative) Urine Bilirubin Neg (Negative) Urine Urobilinogen Norm mg/dL mg/dL (Negative) Ur Leukocyte Venessa ase Negative (Negative) Urine RBC 5-10 /hpf H /hpf (0-2) Urine WBC 0-4 /hpf H /hpf (0-5) Ur Squamous Epith Cells 0-4 /hpf H /hpf (0-5) Amorphous Sediment Not Reportable Urine Bacteria Trace /hpf /hpf (NONE) Discharge Plan Discharge Patient Disposition: Home Clinical Impression: Christensen catheter problem Qualifiers: Encounter type: initial encounter Qualified Code(s): T83.9XXA - Unspecified complication of genitourinary prosthetic device, implant and graft, initial encounter Condition: Stable Prescriptions: No Action metformin 500 mg tablet 500 mg PO BID RF: 0 metronidazole [Flagyl] 500 mg tablet 500 mg PO BID Qty: 20 RF: 0 oxycodone-acetaminophen 5-325 mg tablet 1 tab PO Q6H PRN (Reason: pain) 7 Days Qty: 20 RF: 0 flavoxate 100 mg tablet 100 mg PO QID Qty: 120 RF: 1 cephalexin 750 mg capsule 750 mg PO BID Qty: 20 RF: 0 docusate sodium 100 mg capsule 100 mg PO BID Qty: 60 RF: 0 clindamycin HCl 300 mg capsule 300 mg PO Q6H 10 Days Qty: 40 RF: 0 hydrocodone-acetaminophen 5-325 mg tablet 1 tab PO Q6H PRN (Reason: pain) Qty: 10 RF: 0 Discharge Orders: Discharge ED (Routine); Ordered 05/01/21 Ordered By: Oleg Thomas Discharge Diet: Usual diet Discharge Activity: Increase activity as tolerated Patient Instructions: Christensen Catheter Placement and Care (ED), Opioid Safety Activity Restrictions/Additional Instructions: Continue with routine care. Drink plenty of water. Continue antibiotics as directed. Follow-up with Dr. Chavez on Monday. Return to the ER for high fever greater than 100.4 or new concerns. Coding Level of Care Code ED Channeling Machine Runner for Chg Fwd Exam Comprehensive Documented by User: Boris Muñoz DO 05/02/21 00:24 HPI - Female Genitourinary General: Chief complaint: Urogenital-Female Stated complaint: cath an bladder pain Time Seen by Provider: 05/01/21 20:12 [facility] ED PFSH: Medical History History of PCOS History of pre-eclampsia Traumatic partial tear of biceps tendon Surgical History History of bladder repair surgery sling, 10/2020 Social History Smoking and tobacco status: never smoked Alcohol intake: current Alcohol intake frequency: holidays/special occasions only Course Vital Signs: Vital signs: Vital Signs Temperature 98.0 F 05/01/21 20:09 Pulse Rate 100 05/01/21 20:09 Respiratory Rate 20 H 05/01/21 20:09 Pulse Oximetry 98 05/01/21 20:09 MDM - Female MDM Narrative: Medical decision making narrative: This patient was originally seen by BROOKS Penn. I agree with his history, evaluation, and treatment. Lab Data: Labs: Lab Results 05/01/21 20:30 Urine Color Yellow (Yellow) Urine Appearance Clear (CLEAR) Urine pH 5 (5-7) Ur Specific Gravit y 1.015 (1.005-1.030) Urine Protein Neg (Negative) Urine Glucose (UA) Norm (Normal) Urine Ketones Negative (Negative) Urine Blood 3+ H (Negative) Urine Nitrate Negative (Negative) Urine Bilirubin Neg (Negative) Urine Urobilinogen Norm mg/dL mg/dL (Negative) Ur Leukocyte Venessa ase Negative (Negative) Urine RBC 5-10 /hpf H /hpf (0-2) Urine WBC 0-4 /hpf H /hpf (0-5) Ur Squamous Epith Cells 0-4 /hpf H /hpf (0-5) Amorphous Sediment Not Reportable Urine Bacteria Trace /hpf /hpf (NONE) Discharge Plan Discharge Patient Disposition: Home Clinical Impression: Christensen catheter problem Qualifiers: Encounter type: initial encounter Qualified Code(s): T83.9XXA - Unspecified complication of genitourinary prosthetic device, implant and graft, initial encounter Condition: Stable Prescriptions: No Action metformin 500 mg tablet 500 mg PO BID RF: 0 metronidazole [Flagyl] 500 mg tablet 500 mg PO BID Qty: 20 RF: 0 oxycodone-acetaminophen 5-325 mg tablet 1 tab PO Q6H PRN (Reason: pain) 7 Days Qty: 20 RF: 0 flavoxate 100 mg tablet 100 mg PO QID Qty: 120 RF: 1 cephalexin 750 mg capsule 750 mg PO BID Qty: 20 RF: 0 docusate sodium 100 mg capsule 100 mg PO BID Qty: 60 RF: 0 clindamycin HCl 300 mg capsule 300 mg PO Q6H 10 Days Qty: 40 RF: 0 hydrocodone-acetaminophen 5-325 mg tablet 1 tab PO Q6H PRN (Reason: pain) Qty: 10 RF: 0 Discharge Orders: Discharge ED (Routine); Ordered 05/01/21 Ordered By: Oleg Thomas Discharge Diet: Usual diet Discharge Activity: Increase activity as tolerated Patient Instructions: Christensen Catheter Placement and Care (ED), Opioid Safety Activity Restrictions/Additional Instructions: Continue with routine care. Drink plenty of water. Continue antibiotics as directed. Follow-up with Dr. Chavez on Monday. Return to the ER for high fever greater than 100.4 or new concerns. Coding Level of Care Code ED Channeling Machine Runner for Rochelle Fwd Exam Comprehensive
[2021-05-01 21:22] LABS: Add Urine Microscopic? YES; Bilirubin Urine Neg (Negative); Blood Urine 3+ (Negative); Glucose Urine UA Norm (Normal); Ketones Urine Negative (Negative); Leukocyte Esterase Urine Negative (Negative); Nitrate Urine Negative (Negative); Protein Urine Neg (Negative); Specific Gravity, Urine 1.015 (1.005-1.030); Urine Appearance Clear (CLEAR); Urine Color Yellow (Yellow); Urobilinogen Urine Norm (Negative); pH Urine 5 (5-7)
--- NOTE | 2021-05-01 21:23 | PC.NURSE ---
Pt. states that after having her catheter flushed, she feels better , but still feels as if she was hit by a mac truck . I have explained to her that she is on the right track, with following up with her urologist, but for now she is draining well and she has had her catheter flushed.
[2021-05-01 21:28] LABS: Add Urine Culture? No; Bacteria Urine TRACE /hpf; Squamous Epithelial Cell Urine 0-4 /hpf (0-5); WBC Urine 0-4 /hpf (0-5)
== END 2021-05-01 21:53 | disposition home or self-care (01) ==
PROVIDERS: Emergency Provider Nurse Practitioner Family
DX: T83.9XXA Unspecified complication of genitourinary prosthetic device, implant and graft, initial encounter (principal)
CPT/HCPCS: 51702; 81001; 99283

== ENCOUNTER → 2021-05-10 14:08 | Outpatient (BNVA) | payer OTHER, SELFPAY | PROVIDERS: PCP Obstetrics & Gynecology; Visit Provider Obstetrics & Gynecology | DX: R32 Unspecified urinary incontinence (principal); R30.0 Dysuria | CPT/HCPCS: 81000; 87086 ==

== ENCOUNTER → 2021-05-11 15:55 | Outpatient (BNVA) | payer OTHER, SELFPAY | PROVIDERS: PCP Obstetrics & Gynecology; Visit Provider Obstetrics & Gynecology | DX: N99.89 Other postprocedural complications and disorders of genitourinary system (principal); R30.0 Dysuria; R33.8 Other retention of urine | CPT/HCPCS: 87086 ==

== ENCOUNTER → 2021-06-01 08:01 | Outpatient (BNVA) | payer OTHER, SELFPAY | PROVIDERS: PCP Obstetrics & Gynecology; Visit Provider Urology | DX: N99.89 Other postprocedural complications and disorders of genitourinary system (principal); R32 Unspecified urinary incontinence; R33.8 Other retention of urine | CPT/HCPCS: 81003 ==

== ENCOUNTER 2021-06-25 08:16 | Emergency (ER) | payer OTHER, SELFPAY ==
[2021-06-25 08:28] VITALS: BP 176/113; PULSE 82; RESP 18; TEMP 36.4; O2SAT 99; BMI 41.6
--- NOTE | 2021-06-25 08:54 | CT_ITS ---
WS: [id number] CTA HEAD TECHNIQUE: Contrast enhanced CTA of the head with coronal and sagittal reformatted images and maximum intensity projection (MIP) images. NASCET criteria utilized. CLINICAL INFORMATION: headache COMPARISON: None. DLP: 581.[address] scans at [facility] use at least one of these dose optimization techniques: automated e xposure control; mA and/or kV adjustment per patient size (includes targeted exams where dose is matc hed to clinical indication); or iterative reconstruction. FINDINGS: INTRACRANIAL CTA: Distal vertebral bodies are patent. Basilar artery is patent. Normal vascularity to the LEARN TO SWIM INSTRUCTOR territory bilaterally. Both ICAs are patent at the skull base. Normal vascularity to the [place]ALIN[place] and MCA territori es bilaterally. No evidence of flow-limiting stenosis or aneurysm. Mastoid air cells well aerated. Paranasal sinuses well aerated. Retention cysts in the paranasal sinu ses. Normal optic chiasm. No hydrocephalus. Visualized dural venous sinuses are normal. No other sign ificant findings. CT/CT angio head 50930 IMPRESSION: 1. Normal intracranial CTA. 2. Mild inflammatory changes in the paranasal sinuses.
[2021-06-25] MEDS: sodium chloride 0.9% 1,000 ML 999 ML IV (09:27)
--- NOTE | 2021-06-25 09:27 | W.ED.HA ---
HPI - Headache General: Chief Complaint: Headache Stated Complaint: migraine Time Seen by Provider: 06/25/21 08:25 History of Present Illness: Patient comes in with a headache. States it started 5 days ago then resolved and came back 2 days ago. She describes the headache as sharp, constant, all over her head, radiates to her shoulders. Associated photophobia. Denies nausea vomiting, fever, or other cold symptoms. States she used to get migraine headaches but has not for years now. Associated symptoms: Deny chest pain, fever(s), nausea, rash or vomiting Review of Systems Const: Denies: fever(s) or body aches Eyes: Denies: change in vision or blurry vision ENMT: Denies: throat pain or odynophagia Card: Denies: chest pain or palpitations Resp: Denies: dyspnea or productive cough GI: Denies: abdominal pain, nausea or vomiting : Denies: flank pain or dysuria Musc: Denies: neck pain or back pain Skin/Breast: Denies: rash or pruritus Neuro: Reports: headache(s); Denies: numbness in extremities Psych: Denies: anxiety or change in appetite Endo: Denies: polyuria or excessive sweating PFSH ED PFSH: Medical History History of PCOS History of pre-eclampsia Traumatic partial tear of biceps tendon Surgical History History of bladder repair surgery sling, 10/2020 S/P laparoscopic assisted vaginal hysterectomy (LAVH) Family History Mother Healthy adult Father Diabetes Hypertension Social History Smoking and tobacco status: never smoked Alcohol intake: current Alcohol intake frequency: holidays/special occasions only Marital status: Current occupational status: employed History of recent travel: No Female Reproductive History: Date of last menstrual period: 03/21/21 Physical Exam Const: COMMON NORMALS: no acute distress, patient oriented x3, healthy appearing and alert HENMT: COMMON NORMALS: normocephalic and atraumatic HEAD & SCALP: normocephalic and atraumatic Eye: COMMON NORMALS: Equal, round and reactive pupils present and EOMs intact bilaterally PUPIL: Yes Equal, round and reactive pupils present Neck/C-Spine: COMMON NORMALS: full ROM and supple Resp: COMMON NORMALS: normal respiratory effort, No retractions and No use of accessory muscles Cardio: COMMON NORMALS: regular rate and regular rhythm RATE: regular rate RHYTHM: regular rhythm GI: COMMON NORMALS: Normal to inspection, nondistended, normoactive bowel sounds present, Soft to palpation and non-tender PALPATION: Yes Soft to palpation Back/Pelvis: COMMON NORMALS: thoracic and lumbar spine normal to inspection and no thoracic nor lumbar tenderness Extremity: COMMON NORMALS: normal to inspection and full ROM Neuro: COMMON NORMALS: patient oriented x3 SENSORIUM/ORIENTATION: Yes alert Psych: COMMON NORMALS: mental status grossly normal and cooperative Skin: COMMON NORMALS: no rashes or lesions noted and no wounds GENERAL SKIN EXAM: no rashes or lesions noted Course Vital Signs: Vital signs: Vital Signs Temperature 97.6 F 06/25/21 08:28 Pulse Rate 82 06/25/21 08:28 Respiratory Rate 18 06/25/21 08:28 Blood Pressure 176/113 06/25/21 08:28 Pulse Oximetry 99 06/25/21 08:28 MDM - Headache Medical Decision Making Patient comes in with a headache. States it started 5 days ago then resolved and came back 2 days ago. She describes the headache as sharp, constant, all over her head, radiates to her shoulders. Associated photophobia. Denies nausea vomiting, fever, or other cold symptoms. States she used to get migraine headaches but has not for years now. Physical exam is unremarkable. Will check CTA head, treat headache with IV Toradol, IV Compazine, IV Benadryl, IV fluids, and reassess. On reassessment I talked to the patient about the CT results. She states her headache is improving, but not gone. We will give her a dose of Decadron, write her a prescription for rizatriptan, and discharged with precautions to return for worsening or changing symptoms. Lab Data Radiology Impressions Head CTA 06/25/21 08:54 IMPRESSION: 1. Normal intracranial CTA. 2. Mild inflammatory changes in the paranasal sinuses. Discharge Plan Discharge Patient Disposition: Home Clinical Impression: Migraine Condition: Stable Prescriptions: New rizatriptan 5 mg tablet 5 mg PO Q2H PRN (Reason: migraine headache) Qty: 2 0RF Rx Instructions: do not exceed 6 doses per 24 hrs No Action metformin 500 mg tablet 500 mg PO BID 0RF ibuprofen 800 mg tablet 800 mg PO Q8H 0RF cyclobenzaprine 10 mg tablet 10 mg PO TID PRN (Reason: muscle spasm) Qty: 20 0RF tamsulosin 0.4 mg capsule 0.4 mg PO DAILY Qty: 30 6RF multivitamin Tablet 1 tab PO DAILY 0RF Discharge Orders: Discharge ED (Routine); Ordered 06/25/21 Ordered By: Perry Srivastava Coding Level of Care Code ED Telephonic Nurse for Chg Fwd Exam Comprehensive
[2021-06-25] MEDS: diphenhydrAMINE 50 mg/mL SDV 1mL 25 MG IVP (09:28)
[2021-06-25] MEDS: prochlorperazine 10 mg/2 mL Inj IV (09:28)
[2021-06-25] MEDS: ketorolac 30 mg/mL INJ IVP (09:28)
[2021-06-25] MEDS: iohexol 350 mg/mL 100 mL Btl IV (10:01)
[2021-06-25] MEDS: dexamethasone 4 mg/mL INJ IVP (12:10)
[2021-06-25 12:11] VITALS: BP 150/102; PULSE 80; RESP 16; O2SAT 98
== END 2021-06-25 12:17 | disposition home or self-care (01) ==
PROVIDERS: Emergency Provider Emergency Medicine
DX: G43.909 Migraine, unspecified, not intractable, without status migrainosus (principal); Z79.84 Long term (current) use of oral hypoglycemic drugs
CPT/HCPCS: 70496; 96361; 96374; 96375; 99284; J0780; J1100; J1200; J1885; J7030; Q9967

== ENCOUNTER → 2021-09-02 17:50 | Outpatient (BNVA) | payer OTHER, SELFPAY | PROVIDERS: Visit Provider Nurse Practitioner Family | DX: R32 Unspecified urinary incontinence (principal); R82.81 Pyuria | CPT/HCPCS: 81003; 87086 ==

== ENCOUNTER 2023-12-31 20:48 | Emergency (ER) | payer SELFPAY ==
[2023-12-31 20:52] VITALS: BP 119/76; PULSE 73; RESP 17; TEMP 36.6; O2SAT 96; BMI 44.2
--- NOTE | 2023-12-31 21:38 | XRR_ITS ---
PROCEDURE INFORMATION: Exam: XR Left Wrist Exam date and time: 12/31/2023 10:07 PM Age: 33 years old Clinical indication: Patient HX: C/O diffuse left wrist pain with swelling starting yesterday. No injury. ; Additional info: Pain, swelling TECHNIQUE: Imaging protocol: Radiologic exam of the left wrist. Views: 3 or more views. COMPARISON: No relevant prior studies available. FINDINGS: Bones/joints: Mild degenerative disease of the 1st carpometacarpal joint. Tiny soft tissue osseous fragment at the volar aspect of the proximal row, likely from prior injury. Soft tissues: Normal. XR/XR wrist LT min 3V* [id number] IMPRESSION: No acute fracture or dislocation.
[2023-12-31 22:01] VITALS: BP 130/76; PULSE 71; RESP 16; O2SAT 98
--- NOTE | 2023-12-31 22:01 | ED_ITS ---
HPI - Extremity Problem General: Chief complaint: Extremity Injury, Upper Stated complaint: Left arm/Wrist Swelling Time Seen by Provider: 12/31/23 21:38 History of Present Illness: 33-year-old female comes in today with c omplaints of pain to the left wrist. Patient reports that about 2 weeks ago she had fallen and hurt her knee and wrist but seem to have gotten over it. This weekend she went to an adventure park where she used a rope. She had and had increased activity now her wrist seems to be more uncomfortable and having more pain with some increased swelling. Related Data Home Medications Medication Instructions Recorded Confirmed metformin 500 mg tablet 500 mg PO BID 02/08/21 09/02/21 multivitamin 1 tab PO DAILY 06/01/21 09/02/21 Previous Rx's Medication Instructions Recorded cyclobenzaprine 10 mg tablet 10 mg PO TID PRN muscle spasm #20 06/24/21 tabs rizatriptan 5 mg tablet 5 mg PO Q2H PRN migraine headache 06/25/21 #2 tabs triamcinolone acetonide 0.5 % 1 applic topical TID 10 days #15 09/01/21 topical ointment grams nitrofurantoin 100 mg PO BID #30 caps 09/02/21 monohydrate/macrocrystals 100 mg capsule (Macrobid) ibuprofen 800 mg tablet 800 mg PO Q8H #30 tabs 12/31/23 Allergies Allergy/AdvReac Type Severity Reaction Status Date / Time azithromycin Allergy ALGY-Hives Verified 12/31/23 20:58 dermabond Allergy ALGY-Bliste Uncoded 12/31/23 20:58 r Review of Systems General: Reports: 10 or more systems reviewed and unremarkable except in HPI and below Musc: Reports: joint pain and joint swelling PFSH ED PFSH: Medical History History of PCOS History of pre-eclampsia Traumatic partial tear of biceps tendon Surgical History History of bladder repair surgery sling, 10/2020 S/P laparoscopic assisted vaginal hysterectomy (LAVH) Family History Mother Healthy adult Father Diabetes Hypertension Social History Smoking and tobacco/nicotine status: never used tobacco/nicotine Alcohol intake: current Alcohol intake frequency: holidays/special occasions only Substance/Drug Use: never Marital status: Current occupational status: employed Physical Exam 2 Const: COMMON NORMALS: alert HENMT: COMMON NORMALS: normocephalic HEAD & SCALP: normocephalic THROAT: posterior oropharynx normal Neck/C-Spine: COMMON NORMALS: full ROM Resp: COMMON NORMALS: normal respiratory effort Cardio: COMMON NORMALS: regular rate RATE: regular rate Back/Pelvis: COMMON NORMALS: thoracic and lumbar spine normal to inspection Extremity: LEFT UPPER EXTREMITY: Yes wrist (Joint line tenderness,) Left wrist: Yes inspection and Yes ROM (Decreased range of motion due to pain) Neuro: SENSORIUM/ORIENTATION: Yes alert Skin: COMMON NORMALS: turgor normal GENERAL SKIN EXAM: turgor normal Course Vital Signs: Vital signs: Vital Signs Temperature 97.9 F 12/31/23 20:52 Pulse Rate 71 12/31/23 22:01 Respiratory Rate 16 12/31/23 22:01 Blood Pressure 130/76 12/31/23 22:01 Pulse Oximetry 98 12/31/23 22:01 Oxygen Delivery Me thod Room Air 12/31/23 20:52 MDM - Extremity (Nontraumatic) Medical Decision Making 33-year-old female comes in today with complaints of left wrist pain and discomfort. Patient appears nontoxic. Patient appears no acute distress. Patient has tenderness to the left joint line. Minimal to no swelling is noted. Cap refill is intact. Differential diagnosis includes but not limited to fracture, sprain, tendinitis. Wet read of x-ray noted no acute fractures or dislocation. Patient was put in an elastic wrap and recommended to follow-up as needed. Patient and family both reported understanding. XR interpretation done by ED provider, pending radiology final review Discharge Plan Discharge Patient Disposition: Home Clinical Impression: Sprain and strain of wrist Condition: Stable Prescriptions: Continued ibuprofen 800 mg tablet 800 mg PO Q8H Qty: 30 0RF No Action metformin 500 mg tablet 500 mg PO BID nitrofurantoin monohyd/m-cryst [Macrobid] 100 mg capsule 100 mg PO BID Qty: 30 1RF Rx Instructions: must administer with a meal/food cyclobenzaprine 10 mg tablet 10 mg PO TID PRN (Reason: muscle spasm) Qty: 20 0RF multivitamin Tablet 1 tab PO DAILY triamcinolone acetonide 0.5 % ointment 1 applic topical TID 10 Days Qty: 15 1RF rizatriptan 5 mg tablet 5 mg PO Q2H PRN (Reason: migraine headache) Qty: 2 0RF Rx Instructions: do not exceed 6 doses per 24 hrs Discharge Orders: Discharge ED (Routine); Ordered 12/31/23 Ordered By: Oleg Thomas Discharge Diet: Usual diet Discharge Activity: Increase activity as tolerated Patient Instructions: Wrist Injury (ED) Activity Restrictions/Additional Instructions: Wear elastic bandage for comfort and support. Use acetaminophen and ibuprofen for pain and discomfort. Use ice or heat for further relief. Increase activity as tolerated. Follow-up with primary care in 1 week for recheck. Return to ED for new concerns. Thank you for choosing [facility] for your healthcare needs today. Please realize that you were seen in the emergency department and that we are providing you with an emergency medical screening exam and this may not be a complete and all exclusive of all testing and/or medical workup we may need to determine your element or severity of your illness. It is very important that you follow-up as instructed with your primary care provider or specialist for the additional evaluation and to discuss your medical treatment plan. You may return to the emergency department should you have concerns or if your condition changes or worsens in any way. Coding Level of Care Code ED Detector Car Operator for Rochelle Sanchez
== END 2023-12-31 22:41 | disposition home or self-care (01) ==
PROVIDERS: Emergency Provider Nurse Practitioner Family
DX: S63.502A Unspecified sprain of left wrist, initial encounter (principal); S66.912A Strain of unspecified muscle, fascia and tendon at wrist and hand level, left hand, initial encounter; Z79.84 Long term (current) use of oral hypoglycemic drugs; W19.XXXA Unspecified fall, initial encounter
CPT/HCPCS: 73110; 99283